=== PATIENT | female | born 1960 | race Caucasian/White ===

== ENCOUNTER → 2016-07-11 | Outpatient (CLI) | payer OTHER ==
--- NOTE | 2016-07-11 15:27 | CT ---
EXAMINATION: CT left hip without contrast HISTORY: Fracture COMPARISON: Radiograph dated 07/05/2016, 12/15/2015. TECHNIQUE: Axial CT images obtained through the left hip without contrast. Coronal and sagittal bárbara nstructions obtained. FINDINGS: There is an intramedullary hardware within interlocking femoral neck screw noted traversin g a nondisplaced basicervical femoral neck fracture. There appears to be osseous fusion through the fracture component along the anterior aspect however the remaining fracture appears nonunited. No si gnificant joint effusion is demonstrated. Remaining osseous structures appear intact. Soft tissue sw elling. Fluid collection. The visualized intrapelvic structures appear normal. IMPRESSION: 1. There is stable hardware fixation of a nondisplaced basicervical left femoral neck fracture. Ther e is likely partial osseous fusion of the fracture along the anterior aspect however the majority of the fracture plane appears nonunited.
== END ==
LOC: MW.DI 12:08
PROVIDERS: ATTEND Orthopaedic Surgery
DX: S72.04 Fracture of base of neck of femur (principal); Z96.7 Presence of other bone and tendon implants
CPT/HCPCS: 73700-26-LT; 73700-LT